=== PATIENT | male | born 1985 | race Hispanic/Latino ===

== ENCOUNTER 2017-05-29 15:34 | Emergency (ER) | payer SELFPAY ==
[~2017-05-29 15:34] MED LIST: Iopamidol 370 76% 100 ML VIAL ONE
[2017-05-29] MEDS ORDERED: Mag-Al Plus 1200 MG/1200 MG/120 MG/30 ML UDCUP ONE (15:39)
[2017-05-29] MEDS ORDERED: Lidocaine Viscous Sol 2% 15 ml UD Cup ONE (15:39)
[2017-05-29] MEDS ORDERED: Pantoprazole 40 MG VIAL ONE (15:57)
[2017-05-29] MEDS ORDERED: Sodium Chloride 0.9% 1,000 ML ONE ×3 (15:57→18:12)
[2017-05-29] MEDS ORDERED: Ondansetron HCl/PF 4 MG/2 ML Vial ONE (15:57)
[2017-05-29 16:28] LABS: ALT (SGPT) 29 U/L (8-55); AST (SGOT) 28 U/L (5-34); Alkaline Phosphatase 95 U/L (40-150); Anion Gap 22 mmol/L (10-20); BUN (Urea Nitrogen) 16 mg/dL (8.9-20.6); Bilirubin, Total 0.4 mg/dL (0.2-1.2); Calc. Creatinine Clearance 0 mL/min (70-130); Calcium 9.6 mg/dL (7.8-10.44); Carbon Dioxide 20 mmol/L (22-29); Chloride 103 mmol/L (98-107); Estimated GFR-MDRD 76; Globulin 3.6 g/dL (2.4-3.5); Glucose 120 mg/dL (70-105); Potassium 3.8 mmol/L (3.5-5.1); Protein, Total 8.6 g/dL (6.0-8.3); Sodium 141 mmol/L (136-145)
[2017-05-29 16:36] LABS: #Basophils 0.2 thou/uL (0.0-0.2); #Eosinphils 0.3 thou/uL (0.0-0.7); #Lymphocytes 5.4 thou/uL (1.20-3.40); #Monocytes 1.6 thou/uL (0.11-0.59); #Neutrophils 8.8 thou/uL (1.40-6.50); %Basophils 1.3 % (0.0-1.0); %Eosinophils 2.1 % (0.0-10.0); %Lymphocytes 33.1 % (21.0-51.0); %Monocytes 9.9 % (0.0-10.0); %Neutrophils 53.6 % (42.0-75.0); Differential Comment SCANNED; Mean Corpuscular HGB CONC 32.3 g/dL (32.0-36.0); Mean Corpuscular Hemoglobin 25.8 pg (27.0-31.0); Mean Corpuscular Volume 79.9 fl (80.0-94.0); Mean Platelet Volume 8.8 fL (7.4-10.4); Platelet Count 325 thou/uL (130-400); Red Blood Cell (RBC) Count 6.21 mill/uL (4.70-6.10); White Blood Cell (WBC) Count 16.4 thou/uL (4.8-10.8)
--- NOTE | 2017-05-29 17:04 | RAD ---
FRONTAL RADIOGRAPH CHEST TWO VIEWS ABDOMEN: Date: 05-29-17 Comparison: None. History: Upper gastrointestinal pain/abdominal pain after eating tacos as work. FINDINGS: Frontal radiograph chest demonstrates no pneumothorax, pleural fluid, focal consolidation or alveola r edema. Heart and mediastinal contours unremarkable. Two view examination of the abdomen demonstrates no free intraperitoneal air. The bowel gas pattern appears nonobstructed. There is an overall paucity of bowel gas throughout the abdomen/pelvis limiti ng detailed assessment. No abdominal or pelvic calcifications seen. IMPRESSION: Unremarkable acute abdominal series. POS: [facility]
[2017-05-29 17:19] LABS: Lipase 17200 U/L (8-78)
[2017-05-29 17:41] LABS: Bilirubin Negative (Negative); Blood, Urine Trace (Negative); Clarity Clear (Clear); Glucose, Urine (Dipstick) Negative (Negative); Leukocyte Negative (Negative); Nitrite Negative (Negative); Protein, Urine (Dipstick) Negative (Neg-Trace); Urobilinogen 0.2 mg/dL (0.2-1.0); pH, Urine 5.5 (5.0-9.0)
[2017-05-29 17:49] LABS: RBC/HPF 0-3 HPF (0-3); WBC/HPF 0-3 HPF (0-3)
--- NOTE | 2017-05-29 19:20 | CT ---
CONTRAST ENHANCED ABDOMEN AND PELVIC CT: Comparison: None. Clinical history: Pain. FINDINGS: There is marked inflammation of the central abdomen about the proximal aspect of the pancreas. This does also involve the adjacent, traversing duodenum with surrounding fat stranding and free fluid. N ote is made of free air. There is no focal lesion of the liver, spleen, kidneys, or adrenal glands. The bowel is incompletely assessed without the presence of enteric contrast. The imaged lung bases r eveal mild partially imaged patchy opacification, subpleural and dependent in location. The osseous structures reveal no definitive evidence for acute destructive lesion. IMPRESSION: 1. Findings most consistent with acute pancreatitis. Follow up is recommended to exclude the possibi lity of an underlying lesion as the source for inflammation. Correlation with laboratory values woul d also prove useful. 2. Free fluid likely reactive given the above described findings. Code T POS: [facility]
== END 2017-05-29 18:20 | disposition short-term general hospital (02) ==
LOC: NAV ERS 15:34
DX: K85.90 Acute pancreatitis without necrosis or infection, unspecified (principal)
CPT/HCPCS: 74022; 74177; 80053; 80307; 81003; 81015; 82150; 83690; 85025; 93005; 96361; 96365; 96375; 96376; C9113; J1170; J2405; J7050

== ENCOUNTER 2018-11-04 14:52 | Emergency (ER) | payer OTHER, SELFPAY ==
[2018-11-04] MEDS ORDERED: Morphine 4 MG/ML VIAL ONE (15:17)
[2018-11-04] MEDS ORDERED: Sodium Chloride 0.9% 1,000 ML ONE (15:17)
[2018-11-04] MEDS ORDERED: Ondansetron PF 4 MG/2 ML Vial ONE (15:17)
[2018-11-04 15:47] LABS: ALT (SGPT) 42 U/L (8-55); AST (SGOT) 29 U/L (5-34); Albumin 5.1 g/dL (3.5-5.0); Alkaline Phosphatase 94 U/L (40-150); Anion Gap 19 mmol/L (10-20); BUN (Urea Nitrogen) 13 mg/dL (8.9-20.6); Bilirubin, Total 0.5 mg/dL (0.2-1.2); Calc. Creatinine Clearance 0 mL/min (70-130); Calcium 10.4 mg/dL (7.8-10.44); Carbon Dioxide 24 mmol/L (22-29); Chloride 100 mmol/L (98-107); Estimated GFR-MDRD 83; Globulin 3.5 g/dL (2.4-3.5); Glucose 148 mg/dL (70-105); Potassium 3.5 mmol/L (3.5-5.1); Protein, Total 8.6 g/dL (6.0-8.3); Sodium 139 mmol/L (136-145)
[2018-11-04 16:07] LABS: Alcohol Less than 10 mg/dL (Less than 10)
[2018-11-04 16:08] LABS: Band 3 % (5-11); Eosinophils 3 % (0-10); Lymphocytes 36 % (21-51); MDiff Complete? YES; Mean Corpuscular HGB CONC 32.5 g/dL (32.0-36.0); Mean Corpuscular Hemoglobin 25.9 pg (27.0-31.0); Mean Corpuscular Volume 79.5 fL (78.0-98.0); Mean Platelet Volume 8.7 fL (7.4-10.4); Monocytes 10 % (0-10); Neutrophil 45 % (42-75); Platelet Count 316 thou/uL (130-400); Platelet Morphology Comment Appears Adequate; RBC Distribution Width 11.6 % (11.5-14.5); RBC Morphology Normal; Reactive Lymphocytes 2 % (0-10); Red Blood Cell (RBC) Count 6.57 mill/uL (4.70-6.10); White Blood Cell (WBC) Count 14.1 thou/uL (4.8-10.8)
[2018-11-04 16:16] LABS: Lipase 5874 U/L (8-78)
[2018-11-04 16:20] LABS: Bilirubin Negative (Negative); Blood, Urine Negative (Negative); Clarity Clear (Clear); Glucose, Urine (Dipstick) 100 mg/dL (Negative); Leukocyte Negative (Negative); Nitrite Negative (Negative); Protein, Urine (Dipstick) Negative (Neg-Trace); Specific Gravity, Urine 1.015 (1.005-1.030); Urobilinogen 0.2 mg/dL (0.2-1.0); pH, Urine 6.5 (5.0-9.0)
[2018-11-04 16:34] LABS: Amphetamine Not Detected (NotDetected); Barbiturates Screen Not Detected (NotDetected); Benzodiazepine Screen Not Detected (NotDetected); Cocaine Metabolite Screen Not Detected (NotDetected); Medtox Control Line Valid? VALID (VALID); Methadone Not Detected (NotDetected); Methamphetamine Not Detected (NotDetected); Opiate Screen Detected (NotDetected); Oxycodone Screen Not Detected (NotDetected); Phencyclidine (PCP) Not Detected (NotDetected); THC/Cannabinoid Screen Not Detected (NotDetected); Tricyclic Screen Not Detected (NotDetected)
== END 2018-11-04 17:29 | disposition short-term general hospital (02) ==
LOC: NAV ERS 14:52
DX: K85.20 Alcohol induced acute pancreatitis without necrosis or infection (principal)
CPT/HCPCS: 80053; 80306; 80307; 81003; 82150; 83690; 84484; 85025; 93005; 96361; 96374; 96375; J2270; J2405; J7050

== ENCOUNTER 2020-04-30 04:09 | Emergency (ER) | payer OTHER, SELFPAY ==
[2020-04-30] MEDS ORDERED: Promethazine HCl 25 MG/ML VIAL ONE (04:30)
[2020-04-30] MEDS ORDERED: Morphine 4 MG/ML VIAL ONE (04:30)
[2020-04-30] MEDS ORDERED: Pantoprazole 40 MG VIAL ONE (04:37)
[2020-04-30 05:02] LABS: #Basophils 0.1 thou/uL (0.0-0.2); #Eosinphils 0.2 thou/uL (0.0-0.7); #Lymphocytes 1.8 thou/uL (1.20-3.40); #Monocytes 0.6 thou/uL (0.11-0.59); %Basophils 1.1 % (0.0-1.0); %Eosinophils 1.8 % (0.0-10.0); %Lymphocytes 18.6 % (21.0-51.0); %Monocytes 6.4 % (0.0-10.0); Hemoglobin 14.7 g/dL (14.0-18.0); Mean Corpuscular HGB CONC 32.1 g/dL (32.0-36.0); Mean Corpuscular Hemoglobin 26.3 pg (27.0-31.0); Platelet Count 225 thou/uL (130-400); RBC Distribution Width 12.2 % (11.5-14.5); Red Blood Cell (RBC) Count 5.59 mill/uL (4.70-6.10); White Blood Cell (WBC) Count 9.7 thou/uL (4.8-10.8)
[2020-04-30 05:08] LABS: Bilirubin Negative (Negative); Blood, Urine Negative (Negative); Clarity Clear (Clear); Glucose, Urine (Dipstick) Negative (Negative); Ketone, Urine 40 mg/dL (Negative); Leukocyte Negative (Negative); Nitrite Negative (Negative); Protein, Urine (Dipstick) Negative (Neg-Trace); Urobilinogen 0.2 mg/dL (Less than 2)
[2020-04-30] MEDS ORDERED: Sodium Chloride 0.9% 1,000 ML ONE ×2 (05:20→06:08)
[2020-04-30 05:22] LABS: ALT (SGPT) 17 U/L (8-55); AST (SGOT) 25 U/L (5-34); Albumin 4.5 g/dL (3.5-5.0); Alkaline Phosphatase 76 U/L (40-110); Anion Gap 18 mmol/L (10-20); BUN (Urea Nitrogen) 22 mg/dL (8.9-20.6); Bilirubin, Total 0.5 mg/dL (0.2-1.2); Calc. Creatinine Clearance 0 mL/min (70-130); Calcium 9.2 mg/dL (7.8-10.44); Carbon Dioxide 18 mmol/L (22-29); Chloride 106 mmol/L (98-107); Estimated GFR-MDRD 77; Globulin 2.8 g/dL (2.4-3.5); Glucose 143 mg/dL (70-105); Potassium 3.2 mmol/L (3.5-5.1); Protein, Total 7.3 g/dL (6.0-8.3); Sodium 139 mmol/L (136-145)
[2020-04-30 05:48] LABS: Lipase 2391 U/L (8-78)
--- NOTE | 2020-04-30 08:08 | CT ---
PRELIMINARY REPORT/[facility]/EMERGENCY AFTER HOURS PROCEDURE Receipt of this report by the clinical staff was confirmed with ANTOINE ROGERS MD by Lisa Sandoval on Apr 30, 2020 07:05:00 CDT. Addendum electronically signed by Lisa Sandoval on April 30, 2020 7:05:48 AM CDT EXAM: CT Abdomen and Pelvis with Intravenous Contrast CLINICAL HISTORY: 34 y.o. male with a history of pancreatitis, developed upper abdominal pain after eating bharati e enchiladas last night, and after having 6-8 beers on Tuesday. The patient states that he has had 2 previous episodes of pancreatitis that landed him in the ER in the past, both related to heavy drinki ng. Last episode was over 6 months ago. TECHNIQUE: Axial computed tomography images of the abdomen and pelvis with intravenous contrast. CONTRAST: With; 96ml Isovue 370, Lt Forearm COMPARISON: None provided. FINDINGS: LUNG BASES: No basilar airspace consolidation or pleural effusion. LIVER: Unremarkable. GALLBLADDER AND BILE DUCTS: Unremarkable. No calcified stone. No ductal dilation. PANCREAS: 2.8 x 2.4 x 2.3 cm round mass in the mesentery anterior to the pancreas (series 2, image 35). There is diffuse peripancreatic fluid and stranding surrounding the body and tail of the pancreas com patible with acute interstitial pancreatitis. There is mild edema within the pancreas. There is homogeneous enhancement of the pancreas. SPLEEN: Unremarkable. ADRENAL GLANDS: Unremarkable. KIDNEYS, URETERS, AND BLADDER: Unremarkable. No hydronephrosis or nephrolithiasis. No ureteral or bladder calculi. STOMACH AND BOWEL: Colonic diverticulosis without evidence of diverticulitis. No bowel obstruction. APPENDIX: Normal appendix. PERITONEUM: No free fluid. No free air. LYMPH NODES: No lymphadenopathy. REPRODUCTIVE: Unremarkable as visualized. VASCULATURE: No aortic aneurysm. BONES: No fracture or suspicious osseous abnormality. ABDOMINAL WALL AND SOFT TISSUES: Unremarkable. IMPRESSION: Diffuse peripancreatic fluid surrounding the body and tail of the pancreas compatible with acute inte rstitial edematous pancreatitis. Homogeneous enhancement of the pancreas. 2.8 cm soft tissue mass in the mesentery anterior to the head of the pancreas. Differential diagnosi s includes benign and malignant neoplasms versus an enlarged abnormal appearing lymph node and further workup with MRI and/or tissue correlation is recommended after resolution of acute symptoms. ELECTRONICALLY SIGNED BY: Anitha Mars MD Apr 30, 2020 6:56:01 AM CDT This report is intended for review by the ordering physician only, in accordance of law. If you recei ve this report in error, please call [facility] at [phone]. FINAL REPORT EMERGENT AFTER HOURS CT ABDOMEN AND PELVIS WITH IV CONTRAST: HISTORY: Pancreatitis history. Patient developed upper abdominal pain after eating last night. COMPARISON: 05/29/2017 IMPRESSION: 1. Evidence of pancreatitis with pancreatic and peripancreatic inflammatory stranding and fluid. No f luid collection is seen to suggest a pseudocyst. 2. Round circumscribed hypodense mass just anterior to the head of the pancreas which abuts the pancr eas and may potentially arise from the pancreas, but this is difficult to definitely determine on this exam. This mass measures approximately 2.9 cm in maximal dimensions. As recommended on the preli minary report, MRI may be helpful for further evaluation versus tissue sampling. 3. Colonic diverticulosis. Findings are in agreement with the preliminary report by [facility]. Transcribed Date/Time: 04/30/2020 8:14 AM
[2020-04-30] MEDS ORDERED: Iopamidol 370 76% 100 ML VIAL ONE (09:00)
== END 2020-04-30 07:28 | disposition home or self-care (01) ==
LOC: NAV ERS 04:09
DX: K85.90 Acute pancreatitis without necrosis or infection, unspecified (principal); R19.00 Intra-abdominal and pelvic swelling, mass and lump, unspecified site
CPT/HCPCS: 36415; 74177; 80053; 81003; 83605; 83690; 85025; 94760; 96361; 96374; 96375; C9113; J2270; J2550; J7050; Q9967

== ENCOUNTER 2020-12-09 15:10 | Inpatient (IN) | payer OTHER ==
[2020-12-09] MEDS ORDERED: Ondansetron PF 4 MG/2 ML Vial ONE (15:27)
[2020-12-09] MEDS ORDERED: Sodium Chloride 0.9% 1,000 ML ONE (15:27)
[2020-12-09] MEDS ORDERED: Morphine 4 MG/ML VIAL ONE (15:27)
--- NOTE | 2020-12-09 15:41 | RAD ---
CHEST 1 VIEW PORTABLE: Date: 12/09/2020 HISTORY: Epigastric pain to right lower quadrant. History of pancreatitis. COMPARISON: 05/29/2017. FINDINGS: Heart size is normal. The lungs are clear. IMPRESSION: No significant acute intrathoracic disease. Stable from prior study. POS: [facility]
[2020-12-09 15:51] LABS: ALT (SGPT) 36 U/L (8-55); AST (SGOT) 28 U/L (5-34); Albumin 4.9 g/dL (3.5-5.0); Alkaline Phosphatase 88 U/L (40-110); Anion Gap 17 mmol/L (10-20); BUN (Urea Nitrogen) 8 mg/dL (8.9-20.6); Bilirubin, Total 0.5 mg/dL (0.2-1.2); Calc. Creatinine Clearance 0 mL/min (70-130); Calcium 9.8 mg/dL (7.8-10.44); Carbon Dioxide 24 mmol/L (22-29); Chloride 103 mmol/L (98-107); Globulin 3.4 g/dL (2.4-3.5); Glucose 118 mg/dL (70-105); Protein, Total 8.3 g/dL (6.0-8.3); Sodium 141 mmol/L (136-145)
[2020-12-09 15:58] LABS: Potassium 2.9 mmol/L (3.5-5.1)
[2020-12-09 16:01] LABS: Hemoglobin 16.2 g/dL (14.0-18.0); Mean Corpuscular HGB CONC 32.1 g/dL (32.0-36.0); Mean Corpuscular Hemoglobin 25.5 pg (27.0-31.0); Mean Corpuscular Volume 79.4 fL (78.0-98.0); Mean Platelet Volume 8.8 fL (7.4-10.4); Platelet Count 293 thou/uL (130-400); RBC Distribution Width 12.5 % (11.5-14.5); Red Blood Cell (RBC) Count 6.35 mill/uL (4.70-6.10); White Blood Cell (WBC) Count 14.1 thou/uL (4.8-10.8)
[2020-12-09] MEDS ORDERED: Potassium Chloride 10 MEQ/100 ML PREMIX BAG ONE (16:27)
[2020-12-09 16:41] LABS: Lipase 5988 U/L (8-78)
[2020-12-09 17:00] LABS: Band 1 % (5-11); Eosinophils 2 % (0-10); Lymphocytes 25 % (21-51); MDiff Complete? YES; Monocytes 12 % (0-10); Myelocyte 1 % (0-0); Neutrophil 44 % (42-75); Platelet Morphology Comment Appears Adequate; Reactive Lymphocytes 15 % (0-10)
[2020-12-09 21:07] VITALS: BMI 29.1
[2020-12-09] MEDS: Morphine 4 MG/ML VIAL SLOW IVP PRN (22:16)
[2020-12-09] MEDS: Sodium Chloride 0.9% 1,000 ML IV SCH (22:17)
[2020-12-10] MEDS: Morphine 4 MG/ML VIAL SLOW IVP PRN ×3 (03:54→18:08)
[2020-12-10] MEDS: Sodium Chloride 0.9% 1,000 ML IV SCH ×3 (03:55→20:59)
[2020-12-10 05:13] LABS: %Eosinophils 0.1 % (0.0-10.0); %Lymphocytes 7.6 % (21.0-51.0); %Monocytes 4.6 % (0.0-10.0); %Neutrophils 87.2 % (42.0-75.0); Hemoglobin 15.8 g/dL (14.0-18.0); Manual Diff?? NO; Mean Corpuscular HGB CONC 32.2 g/dL (32.0-36.0); Mean Corpuscular Hemoglobin 25.6 pg (27.0-31.0); Mean Corpuscular Volume 79.4 fL (78.0-98.0); Platelet Count 251 thou/uL (130-400); RBC Distribution Width 12.6 % (11.5-14.5); Red Blood Cell (RBC) Count 6.17 mill/uL (4.70-6.10); White Blood Cell (WBC) Count 13.2 thou/uL (4.8-10.8)
[2020-12-10 05:14] LABS: #Basophils 0.1 thou/uL (0.0-0.2); #Monocytes 0.6 thou/uL (0.11-0.59); #Neutrophils 11.5 thou/uL (1.40-6.50); %Basophils 0.6 % (0.0-1.0)
[2020-12-10 05:26] LABS: ALT (SGPT) 28 U/L (8-55); AST (SGOT) 20 U/L (5-34); Albumin 4.2 g/dL (3.5-5.0); Alkaline Phosphatase 72 U/L (40-110); Anion Gap 14 mmol/L (10-20); BUN (Urea Nitrogen) 10 mg/dL (8.9-20.6); Bilirubin, Total 0.7 mg/dL (0.2-1.2); Calc. Creatinine Clearance 131 mL/min (70-130); Calcium 8.7 mg/dL (7.8-10.44); Carbon Dioxide 24 mmol/L (22-29); Glucose 168 mg/dL (70-105); Lipase 716 U/L (8-78); Potassium 4.2 mmol/L (3.5-5.1); Protein, Total 7.2 g/dL (6.0-8.3); Sodium 137 mmol/L (136-145)
[2020-12-10 05:50] LABS: Chloride 103 mmol/L (98-107)
[2020-12-10 17:05] LABS: SARS-CoV-2 PCR by NAA Not Detected (NotDetected)
[2020-12-10] MEDS ORDERED: Ondansetron PF 4 MG/2 ML Vial IVP PRN (19:50)
[2020-12-10] MEDS: Famotidine/PF 20 mg/2ml Vial SLOW IVP SCH (21:00)
[2020-12-11 05:14] LABS: Red Blood Cell (RBC) Count 5.85 mill/uL (4.70-6.10); White Blood Cell (WBC) Count 13.2 thou/uL (4.8-10.8)
[2020-12-11 05:15] LABS: #Basophils 0.1 thou/uL (0.0-0.2); #Eosinphils 0.2 thou/uL (0.0-0.7); #Lymphocytes 1.9 thou/uL (1.20-3.40); #Monocytes 1.2 thou/uL (0.11-0.59); #Neutrophils 9.9 thou/uL (1.40-6.50); %Basophils 0.8 % (0.0-1.0); %Eosinophils 1.1 % (0.0-10.0); %Lymphocytes 14.2 % (21.0-51.0); %Neutrophils 74.9 % (42.0-75.0); Manual Diff?? NO; Mean Corpuscular HGB CONC 32.2 g/dL (32.0-36.0); Mean Corpuscular Hemoglobin 25.6 pg (27.0-31.0); Mean Corpuscular Volume 79.3 fL (78.0-98.0); Mean Platelet Volume 8.2 fL (7.4-10.4); Platelet Count 229 thou/uL (130-400); RBC Distribution Width 12.4 % (11.5-14.5)
[2020-12-11 05:26] LABS: ALT (SGPT) 18 U/L (8-55); AST (SGOT) 14 U/L (5-34); Alkaline Phosphatase 61 U/L (40-110); Anion Gap 12 mmol/L (10-20); BUN (Urea Nitrogen) 9 mg/dL (8.9-20.6); Bilirubin, Total 1.1 mg/dL (0.2-1.2); Calc. Creatinine Clearance 135 mL/min (70-130); Calcium 8.7 mg/dL (7.8-10.44); Carbon Dioxide 24 mmol/L (22-29); Chloride 104 mmol/L (98-107); Globulin 2.7 g/dL (2.4-3.5); Glucose 135 mg/dL (70-105); Protein, Total 6.7 g/dL (6.0-8.3); Sodium 136 mmol/L (136-145)
[2020-12-11] MEDS: Sodium Chloride 0.9% 1,000 ML IV SCH (05:45)
[2020-12-11] MEDS: Famotidine/PF 20 mg/2ml Vial SLOW IVP SCH (09:23)
[2020-12-11] MEDS ORDERED: HYDROcodone/Acetaminophen 5/325 mg Tablet PO PRN (09:28)
[2020-12-11] MEDS ORDERED: Famotidine 20 MG TAB PO SCH (10:00)
--- NOTE | 2020-12-11 12:09 | PRG ---
DATE OF SERVICE: 12/11/2020 SUBJECTIVE: The patient feels slightly better with persistent pain, is tolerating some liquids. OBJECTIVE: VITAL SIGNS: Temperature 97.2, pulse 79, respirations 18, O2 sats 96% on room air, blood pressure 140/86. LUNGS: Clear. CARDIAC: Regular rhythm. ABDOMEN: Still soft, tender, but decreased tenderness. Good bowel sounds. LABORATORY DATA: Show amylase still elevated at 438; lipase down, however, to 716 from previous 5988; potassium 4.2; sodium 137; chloride 103; bicarb 24; BUN 10; creatinine 0.87. Liver functions normal. ASSESSMENT: Resolving pancreatitis. PLAN: 1. Advance diet to crackers infuse. 2. Continue IV fluids. 3. Continue IV morphine, possibly change to oral pain medicine and increase diet tomorrow. Job ID: [id number]
--- NOTE | 2020-12-11 12:10 | PRG ---
DATE OF SERVICE: 12/11/2020 SUBJECTIVE: The patient is tolerating clear liquids and advance diet as tolerated. Still having abdominal pain, but has been changed to hydrocodone. OBJECTIVE: VITAL SIGNS: Temperature is 97.8, pulse 78, respirations 18, O2 sats 96% on room air, blood pressure 122/74. LUNGS: Clear. CARDIAC: Shows regular rhythm. ABDOMEN: Soft, nontender. LABORATORY DATA: Amylase down to 327. Sodium 136, potassium 4.0, chloride 104, bicarb 24, BUN 9, creatinine 0.84, glucose 135, calcium 8.7. ASSESSMENT: Resolving pancreatitis. PLAN: Monitor on regular diet today and on oral pain medications, possibly discharge today or tomorrow if tolerates diet. Job ID: [id number]
[2020-12-11] MEDS ORDERED: Acetaminophen 500 MG TAB PO PRN ×2 (12:23→13:30)
--- NOTE | 2020-12-11 13:09 | HP ---
HISTORY OF PRESENT ILLNESS: The patient is a 35-year-old male with a long history of recurrent pancreatitis, who presents with severe epigastric pain, nausea, some minimal vomiting. He has had no fever, chills, or diarrhea. He has multiple episodes as mentioned above of recurrent gastric pancreatitis, which he states has related to alcohol use, but states that he has not been drinking, although he did drink some yesterday. He feels his symptoms are consistent with previous episodes of pancreatitis. His past medical history reviewed in the old chart is positive for episode similar to this in 2019, which was evaluated with abdominal ultrasound, showed no gallstones, did show fatty liver, with previous CT previous year showing pancreatitis, felt this was not related to alcohol, and the patient has done well since that time. PAST MEDICAL HISTORY: Otherwise is remarkable for gastritis, secondary to alcohol use and binge drinking. FAMILY MEDICAL HISTORY: Noncontributory. PAST SURGICAL HISTORY: Negative. PSYCHIATRIC HISTORY: Negative. SOCIAL HISTORY: The patient denies regular alcohol use, but does admit to binge drinking. ALLERGIES: HE HAS NO KNOWN ALLERGIES. MEDICATIONS: He is on no medications. REVIEW OF SYSTEMS: HEENT: Denies headaches, dizziness, change in vision or hearing, hoarseness, or dysphagia. PULMONARY: Denies cough, sputum production, pneumonia, asthma, or tuberculosis. CARDIOVASCULAR: Denies chest pain, orthopnea, paroxysmal nocturnal dyspnea or edema. GASTROINTESTINAL: He complains of the above-mentioned abdominal pain and nausea with occasional vomiting. No diarrhea. GENITOURINARY: Denies dysuria, hematuria, or nocturia. MUSCULOSKELETAL: Denies stiffness, swelling in joints or extremities. PHYSICAL EXAMINATION: GENERAL: The patient is a young male, appears to be in significant distress from abdominal pain. VITAL SIGNS: Showed to have temperature of 96.6, pulse 72, respirations 18, O2 sats 94% on room air, blood pressure 140/86. HEENT: Pupils are equal, round, and reactive to light and accommodation. Sclerae anicteric. Conjunctivae pale. Oral mucous membranes well hydrated. NECK: Supple. There are no nodes or masses. LUNGS: Clear. CARDIAC EXAMINATION: Regular rhythm. ABDOMEN: Soft with significant tenderness to palpation. No rebound. Good bowel sounds. SKIN: Extremities display no edema, clubbing, or cyanosis. NEUROLOGICAL: Intact. LABORATORY DATA: Shows white count 13,200, hematocrit 49, hemoglobin 15. Sodium is 141, potassium 2.9, chloride 103, bicarb 24, BUN is 8, creatinine 0.93, lipase 5988 on admission. ASSESSMENT: Recurrent pancreatitis, secondary to ETOH abuse. PLAN: N.p.o., IV normal saline, morphine as needed for pain. Advance diet as tolerated. Monitor amylase and lipase and electrolytes. Job ID: [id number]
[2020-12-11] MEDS ORDERED: Ondansetron ODT 4 MG TAB PO PRN (16:13)
[2020-12-11] MEDS: Famotidine 20 MG TAB PO SCH (21:11)
[2020-12-12] MEDS: Famotidine 20 MG TAB PO SCH (08:54)
[2020-12-12 11:56] VITALS: BP 114/68; TEMP 96.7
== END 2020-12-12 12:30 | disposition home or self-care (01) | DRG 440 ==
LOC: NAV ERS 15:10 → NAV ACUTE 20:07 → OBSVTOIN 20:07
PROVIDERS: ADMIT Internal Medicine; ATTEND Internal Medicine
DX: K85.20 Alcohol induced acute pancreatitis without necrosis or infection (principal); Z88.1 Allergy status to other antibiotic agents; F10.10 Alcohol abuse, uncomplicated; Z20.822 Contact with and (suspected) exposure to COVID-19
CPT/HCPCS: 71045; 80053; 82150; 83690; 84484; 85025; 87635; 93005; 96361; 96365; 96366; 96375; 96376; G0378; J2270; J2405; J3480; J7050; S0028; U0003; U0005